=== PATIENT | male | born 2000 | race Caucasian/White ===

== ENCOUNTER 2020-04-25 03:27 | Observation (INO) ==
[2020-04-25 05:11] LABS: Basophils % 0.2 %; Eosinophils # 0.1 K/mcL (0.0-0.6); Eosinophils % 0.7 %; Hematocrit 45.6 % (37.5-50.1); Hemoglobin 16.3 g/dL (12.9-16.9); Immature Granulocytes % 0.3 % (0-4); Lymphocytes % 16.3 %; Mean Corpuscular HGB Conc 35.7 g/dL (31.6-35.5); Mean Corpuscular Hemoglobin 32.5 pg (28.0-33.3); Mean Corpuscular Volume 90.8 fL (83.0-100.0); Mean Platelet Volume 10.3 fL (9.4-12.4); Neutrophils # 9.2 K/mcL (1.6-8.9); Platelet Count 267 K/mcL (140-400); Red Blood Count 5.02 M/mcL (4.19-5.50); Red Cell Distribution Width 12.1 % (11.5-14.5); Segmented Neutrophils % 74.5 %; White Blood Count 12.3 K/mcL (4.3-11.1)
[2020-04-25 05:17] LABS: Bilirubin,Urine Negative (Negative); Blood,Urine Negative (Negative); Clarity,Urine Clear (Clear); Color,Urine Light-Yellow (Yellow); Glucose,Urine (UA) Normal (Normal); Ketones,Urine Negative (Negative); Leukocyte Esterase,Urine Negative (Negative); Nitrite,Urine Negative (Negative); Protein,Urine Negative (Neg-Trace); Specific Gravity,Urine 1.017 (1.010-1.025); Urobilinogen,Urine Normal (Normal)
[2020-04-25 05:25] LABS: BUN/Creatinine Ratio 13 (6-26); Blood Urea Nitrogen 13 mg/dL (6-20); Calcium 9.5 mg/dL (8.6-10.3); Carbon Dioxide 26 mEq/L (23-29); Chloride 102 mEq/L (98-107); Glucose 87 mg/dL (70-105); Osmolality,Calculated 285 (280-300); Potassium 3.4 mEq/L (3.5-5.1); Sodium 138 mEq/L (136-145); eGFR For African Americans > 60 (> 60); eGFR For Non-African Americans > 60 (> 60)
[2020-04-25] MEDS ORDERED: Isovue-370 500 ML BOTTLE IVP ONE ×2 (05:26→12:16)
[2020-04-25] MEDS ORDERED: 0.9 % Sodium Chloride 1,000 ML IVC ONE (05:27)
[2020-04-25] MEDS ORDERED: Ketorolac 15 MG/ML VIAL IVP ONE (05:27)
[2020-04-25] MEDS ORDERED: Piperacillin/Tazobactam 3.375 GM in 0.9 % Sodium Chloride Mini Bag 100 ML IVPB ONE (06:12)
[2020-04-25] MEDS ORDERED: Ondansetron 4 MG/2 ML VIAL IVP PRN ×3 (08:13→12:16)
[2020-04-25] MEDS ORDERED: Promethazine 6.25 MG in Water for inj. (sterile) 20 ML IVPB PRN (08:13)
[2020-04-25] MEDS ORDERED: *HR* HYDROmorphone (PF) 1 MG/ML SYRINGE IVP PRN (08:13)
[2020-04-25] MEDS ORDERED: *HR* OxyCODONE Immed Rel 5 MG TABLET PO PRN (08:13)
[2020-04-25] MEDS ORDERED: *HR* Propofol 200 MG/20 ML VIAL IVP ONE (08:46)
[2020-04-25] MEDS ORDERED: *HR* FentaNYL (PF) 100 MCG/2 ML VIAL ONE (08:46)
[2020-04-25] MEDS ORDERED: *HR* Midazolam HCl 2 MG/2 ML VIAL ONE (08:46)
[2020-04-25] MEDS ORDERED: *HR* Rocuronium Bromide 50 MG/5 ML VIAL ONE (08:54)
[2020-04-25] MEDS ORDERED: Lidocaine HCL 4 ML Topical Solution (Laryng-O-Jet Kit Sterile Pak) TP ONE (08:54)
[2020-04-25] MEDS ORDERED: Lidocaine -MPF 2% 2 ML VIAL ONE (08:54)
[2020-04-25] MEDS ORDERED: Ondansetron 4 MG/2 ML VIAL ONE (08:54)
[2020-04-25] MEDS ORDERED: Acetaminophen IV 1,000 MG/100 ML BAG IVPB ONE (09:45)
[2020-04-25] MEDS ORDERED: Lidocaine -MPF 4% 5 ML AMPUL ONE (10:24)
[2020-04-25] MEDS ORDERED: *HR* Succinylcholine 200 MG/10 ML VIAL IVP ONE (10:25)
[2020-04-25] MEDS ORDERED: Dexamethasone 4 MG/ML VIAL ONE (10:25)
[2020-04-25] MEDS ORDERED: Ketorolac 30 MG/ML VIAL ONE (10:27)
[2020-04-25] MEDS ORDERED: Sugammadex Sodium 200 MG/2 ML VIAL IV ONE (10:46)
[2020-04-25] MEDS ORDERED: *HR* HYDROMORPHONE 2 MG/ML VIAL ONE (11:10)
[2020-04-25] MEDS ORDERED: cefOXitin 2,000 MG in Water for inj. (sterile) 20 ML IVP SCH (12:16)
[2020-04-25] MEDS ORDERED: 0.9 % Sodium Chloride 1,000 ML IVC SCH (12:16)
[2020-04-25] MEDS ORDERED: *HR* OxyCODONE/APAP 5/325 TABLET PO PRN ×2 (12:16)
[2020-04-25 15:24] VITALS: BP 110/70
[2020-04-25] MEDS ORDERED: Ketorolac 15 MG/ML VIAL IVP SCH (18:00)
== END 2020-04-25 16:53 | disposition home or self-care (01) ==
LOC: EMEROOARM 03:27 → 3ANU 03:27
PROVIDERS: ADMIT Internal Medicine; ATTEND Internal Medicine